=== PATIENT | female | born 1940 | race Caucasian/White ===

== ENCOUNTER 2017-10-11 10:37 | Emergency (ER) | payer BC ==
[~2017-10-11] VITALS: Ht 165.1 cm; Wt 93.0 kg
[~2017-10-11 10:37] MED LIST: AMIL5 PO; COUM3TAB PO; IRBE150T15 PO; ROSU1TAB6 PO; TOPR50TA PO
[2017-10-11 10:42] VITALS: BP 196/84; PULSE 84; RESP 16; TEMP 97.9; O2SAT 98
--- NOTE | 2017-10-11 11:05 | PD ---
HPI Chief Complaint: Skin Problem Time Seen by Provider: 11:00 Travel History International Travel<30 days: No Contact w/Intl Traveler<30days: No Traveled to known affect area: No History of Present Illness HPI 77-year-old female with PMH of DM, HTN, MVP, on Coumadin presents to the ED for evaluation of intermittent bleeding from a small lesion on the right foot 2 weeks. Patient can identify no injury to the area. She states that the area started as a painless "lump." She denies numbness, tingling, weakness, limitations to range of motion of the extremity. Denies dizziness, chest pain, palpitations, shortness of breath. She's been treating at home with pressure dressings with no improvement of symptoms. She endorses compliance with her blood thinners. She states that she checks her INR at home weekly and last reading was therapeutic at 2.8. She lives full-time in [place] and is here for the winter. PFSH Past Medical History Hx Anticoagulant Therapy: Yes (COUMADIN) Cardiovascular Problems: Yes High Cholesterol: Yes Diabetes: Yes Diminished Hearing: No Hypertension: Yes Immunizations Current: Yes Menopausal: Yes Past Surgical History Valve Replacement: Yes Social History Alcohol Use: No Tobacco Use: No Substance Use: No Allergies-Medications (Allergen,Severity, Reaction): Coded Allergies: Sulfa (Sulfonamide Antibiotics) (Unverified Allergy, Severe, 10/11/17) Reported Meds & Prescriptions Reported Meds & Active Scripts Active Reported Rosuvastatin (Rosuvastatin Calcium) 10 Mg Tab 10 Mg PO HS Coumadin (Warfarin) 3 Mg Tab 3.25 Mg PO DAILY Amiloride (Amiloride HCl) 5 Mg Tab 5 Mg PO DAILY Toprol XL (Metoprolol Succinate) 50 Mg Tab 50 Mg PO DAILY Irbesartan 150 Mg Tab 150 Mg PO BID Review of Systems Except as stated in HPI: all other systems reviewed are Neg Physical Exam Narrative GENERAL: Well-nourished, well-developed pleasant white female no acute distress. SKIN: Focused skin assessment warm/dry. HEAD: Normocephalic. EYES: No scleral icterus. No injection or drainage. NECK: Supple, trachea midline. No JVD or lymphadenopathy. CARDIOVASCULAR: Regular rate and rhythm without murmurs, gallops, or rubs. RESPIRATORY: Breath sounds equal bilaterally. No accessory muscle use. GASTROINTESTINAL: Abdomen soft, non-tender, nondistended. MUSCULOSKELETAL: No cyanosis, or edema. FOCUSED RIGHT LOWER EXTREMITY EXAM: 2+ DP pulse. Patient retains full, active , painless ROM of the extremity. There is a friable subcentimeter papular lesion on the plantar aspect of the foot just proximal to the third digit. Mild bleeding. BACK: Nontender without obvious deformity. No CVA tenderness. Data Data Last Documented VS Vital Signs Date Time Temp Pulse Resp B/P (MAP) Pulse Ox O2 Delivery O2 Flow Rate FiO2 10/11/17 10:42 97.9 84 16 196/84 (121) 98 Orders Orders Ed Discharge Order (10/11/17 11:55) [facility] Medical Decision Making Medical Screen Exam Complete: Yes Emergency Medical Condition: Yes Differential Diagnosis Planters wart versus supratherapeutic INR versus diabetic foot wound versus other Narrative Course 77-year-old female with PMH of DM, HTN, MVP, on Coumadin presents to the ED for evaluation of intermittent bleeding from a small lesion on the right foot 2 weeks. Patient can identify no injury to the area. She states that the area started as a painless "lump." She states that she checks her INR at home weekly and last reading was therapeutic at 2.8. Vitals reviewed. On exam there is a friable subcentimeter papular lesion on the plantar aspect of the foot, just proximal to the third digit. There is pinpoint bleeding. Wound seal and a pressure dressing was applied for approximately 7-8 minutes. On recheck the bleeding has resolved. Pressure dressing was applied. Postop shoe was applied. The patient is instructed to keep the wound clean, dry and covered , follow-up with the pilates coordinator for further evaluation. I stressed the importance of this given her history of diabetes. She was provided with the on- call pilates coordinator contact information. She is instructed to return to the ED if bleeding worsens. She indicated understanding of the instructions and is agreeable care plan. She stable and discharged home. Diagnosis Primary Impression: Soft tissue lesion of foot Additional Impression: Bleeding Referrals: Juan Alberto Rangel DPM [facility] Patient Instructions: Blood Thinners (ED), General Instructions Additional Instructions: Rest, hydrate. Keep the wound clean, dry and covered. Use the pressure dressings and wear the postop shoe as discussed. Follow-up with the pilates coordinator or smoking pipe coater as discussed. Return to the ED for worsening symptoms or any urgent or emergent medical condition. Disposition: 01 DISCHARGE HOME Condition: Stable Diana Velez Oct 11, 2017 11:05
== END 2017-10-11 12:08 | disposition home or self-care (01) ==
LOC: PHEFT 10:37
DX: L98.9 Disorder of the skin and subcutaneous tissue, unspecified (principal); E78.00 Pure hypercholesterolemia, unspecified
CPT/HCPCS: 99282